=== PATIENT | female | born 1955 | race Caucasian/White ===

== ENCOUNTER 2017-09-07 08:00 | Outpatient (CLI) | payer OTHER ==
[2017-09-07 13:15] LABS: BASOPHILS # (AUTO) 0.1 10^3/uL (0.0-0.1); BASOPHILS % (AUTO) 0.8 %; EOSINOPHILS # (AUTO) 0.1 10^3/uL (0.0-0.7); EOSINOPHILS % (AUTO) 1.2 %; HGB - HEMOGLOBIN 13.6 g/dL (12.0-16.0); LYMPHOCYTES % (AUTO) 20.9 %; MEAN CORPUSCULAR HEMOGLOBIN 29.8 pg (27.0-31.0); MEAN CORPUSCULAR HGB CONC 33.9 g/dL (32.0-36.0); MEAN PLATELET VOLUME 8.3 fL (7.9-10.8); MONOCYTES # (AUTO) 0.5 10^3/uL (0.0-1.0); MONOCYTES % (AUTO) 5.7 %; NEUTROPHILS # (AUTO) 6.8 10^3/uL (1.5-6.6); NEUTROPHILS % (AUTO) 71.4 %; PLT - PLATELET COUNT 369 10^3/uL (130-450); RED BLOOD COUNT 4.55 10^6/uL (4.20-5.40); RED CELL DISTRIBUTION WIDTH 13.1 % (12.0-15.0); WHITE BLOOD COUNT 9.5 x10^3/uL (4.8-10.8)
[2017-09-07 13:22] LABS: ALBUMIN 3.9 g/dL (3.2-5.5); ALBUMIN/GLOBULIN RATIO 1.2 (1.0-2.2); ALKALINE PHOSPHATASE 79 IU/L (42-121); ALT ALANINE AMINOTRANSFERASE 20 IU/L (10-60); AST ASPARTATE AMINOTRANSFERASE 18 IU/L (10-42); BILIRUBIN,TOTAL 0.4 mg/dL (0.2-1.0); BUN - BLOOD UREA NITROGEN 13 mg/dL (6-20); CARBON DIOXIDE - CO2 24 mmol/L (21-32); CHLORIDE 106 mmol/L (101-111); CHOL/HDL RATIO 4.1 (<4.4); CHOLESTEROL 195 mg/dL; CREATININE 0.6 mg/dL (0.4-1.0); GFR - MDRD 101 (>89); GLUCOSE 99 mg/dL (70-100); HDL CHOLESTEROL 47 mg/dL; LDL CHOLESTEROL,CALCULATED 129 mg/dL; LDL/HDL RATIO 2.7 (<4.4); SODIUM 138 mmol/L (135-145); TOTAL PROTEIN 7.1 g/dL (6.7-8.2); VLDL CHOLESTEROL 19 mg/dL
[2017-09-07 20:02] LABS: HB2 TOTAL 14.6 g/dL; HEMOGLOBIN A1C 0.51 g/dL; HEMOGLOBIN A1C % 5.3 % (4.6-6.2)
== END 2017-09-07 08:01 | disposition home or self-care (01) ==
LOC: LAB.WCP 08:00
PROVIDERS: ATTEND Family Medicine
DX: Z00.00 Encounter for general adult medical examination without abnormal findings (principal); E78.5 Hyperlipidemia, unspecified
CPT/HCPCS: 36415; 80053; 80061; 83036; 83721; 84443; 85025

== ENCOUNTER 2017-09-22 09:15 | Outpatient (CLI) | payer OTHER ==
--- NOTE | 2017-09-22 11:10 | Mammography Report ---
Procedure Date: 09/22/2017 Accession Number: [id number] / [id number] Procedure: MAXIMILIAN - Diagnostic Dig Bilat CPT Code: FULL RESULT: EXAM: Bilateral mammography and left breast ultrasound DATE: 09/22/2017 9:48 AM CLINICAL HISTORY: Left breast pain BILATERAL MAMMOGRAPHY TECHNIQUE: Bilateral digital CC, exaggerated CC, MLO, and left true lateral projections COMPARISON: 12/20/2015, 02/02/2014, 11/30/2011, 09/05/2009 FINDINGS: There are scattered fibroglandular densities. There is no dominant mass, architectural distortion, skin thickening, suspicious microcalcifications, or interval change. No abnormality is identified in the left breast to account for pain. LEFT BREAST ULTRASOUND: Real time scanning by the technologist with saved static images reviewed. Scanning is performed in the 9:30 position 8 cm from the nipple in the area of pain. No cystic or solid mass or abnormal fluid collection is seen. Fat planes are well maintained. IMPRESSION: Negative bilateral mammography and left breast ultrasound. RECOMMENDATION: Suggest follow-up bilateral mammography in 12 months. Suggest clinical follow-up of breast pain. BIRADS CATEGORY 1: Negative STANDARD QUALIFYING STATEMENTS: 1. This examination was reviewed with the aid of Computer-Aided Detection (CAD). 2. A negative or benign imaging report should not delay biopsy if clinically suspicious findings are present. Consider surgical consultation if warrented. More than 5% of cancers are not identified by imaging. 3. Dense breasts may obscure an underlying neoplasm.
== END 2017-09-22 09:16 | disposition home or self-care (01) ==
LOC: DI 09:15
PROVIDERS: ATTEND Family Medicine
DX: N64.4 Mastodynia (principal)
CPT/HCPCS: 76642; 77066

== ENCOUNTER 2019-04-03 15:05 | Outpatient (CLI) | payer OTHER ==
[2019-04-03] MEDS ORDERED: IOVERSOL 320 50 ML VIAL ONE (15:09)
[2019-04-03] MEDS ORDERED: IOVERSOL 320 100 ML VIAL IVP ONE ×2 (15:09→16:21)
[2019-04-03 15:33] LABS: ALBUMIN 4.4 g/dL (3.2-5.5); ALBUMIN/GLOBULIN RATIO 1.4 (1.0-2.2); BILIRUBIN,TOTAL 0.5 mg/dL (0.2-1.0); CALCIUM 9.3 mg/dL (8.5-10.3); CREATININE 0.6 mg/dL (0.4-1.0); TOTAL PROTEIN 7.5 g/dL (6.7-8.2)
[2019-04-03] MEDS ORDERED: IOVERSOL 320 50 ML VIAL PO ONE (16:21)
--- NOTE | 2019-04-03 17:00 | CT Report ---
Reason: HX OF DIVERTICULITIS Procedure Date: 04/03/2019 Accession Number: [id number] / [id number] Procedure: CT - Abdomen/Pelvis W CPT Code: Final Report FULL RESULT: EXAM: CT ABDOMEN AND PELVIS EXAM DATE: 04/03/2019 04:20 PM. CLINICAL HISTORY: Abdominal pain. History of diverticulitis. COMPARISONS: CT ABD AND PELVIS WITH CONTRAST 07/10/2012 8:46 PM. TECHNIQUE: Routine helical CT imaging was performed through the abdomen and pelvis. IV contrast: Opti 320 100 mL. Enteric contrast: Yes. Reconstructions: Coronal and sagittal. In accordance with CT protocol optimization, one or more of the following dose reduction techniques were utilized for this exam: automated exposure control, adjustment of mA and/or KV based on patient size, or use of iterative reconstructive technique. FINDINGS: Lung Bases: Unremarkable. Liver: Unremarkable. Gallbladder/Bile Ducts: Unremarkable. Spleen: Normal. Pancreas: Normal. Adrenal Glands: Normal. Kidneys: Bilateral ectatic main renal pelvis without filling defect, stone, masses or perirenal abnormal density again noted, similar to the prior exam. There are again left renal cortical cysts, the largest one is in the left renal upper pole. Exophytic cortical cyst measured 2.7 cm, previously 1 cm. Peritoneal Cavity/Bowel: There is colon diverticulosis. There is mild pericolonic fat stranding and mild colon wall thickening in the mid sigmoid colon located in the left mid pelvis. No free fluid, free air or adenopathy. No small bowel dilatation or acute inflammatory process. The appendix is visualized and normal. Pelvic Organs: The uterus is not seen. The bladder and visualized pelvic organs are within normal limits. Vasculature: No aneurysms or other significant abnormality. Bones: No significant abnormality. There is new moderate to severe degenerative disk disease at L2-L3; otherwise, the multilevel mild to moderate degenerative disk disease, predominantly at L5-S1 again noted, similar to the prior exam. Other: None. IMPRESSION: 1. Colon diverticulosis with mild mid sigmoid colon diverticulitis without evidence of pneumoperitoneum or drainable abscess. 2. New moderate to severe degenerative disk disease at L2-L3; otherwise, no significant interval change of the multilevel mild to moderate degenerative disk disease, predominantly at L5-S1 RADIA
== END 2019-04-03 15:06 | disposition home or self-care (01) ==
LOC: DI 15:05
PROVIDERS: ATTEND Nurse Practitioner Family
DX: K57.32 Diverticulitis of large intestine without perforation or abscess without bleeding (principal); K57.30 Diverticulosis of large intestine without perforation or abscess without bleeding; M51.36 Other intervertebral disc degeneration, lumbar region; M51.37 Other intervertebral disc degeneration, lumbosacral region
CPT/HCPCS: 36415; 74177; 80053; Q9967

== ENCOUNTER 2019-05-26 08:07 | Outpatient (CLI) | payer OTHER ==
--- NOTE | 2019-06-06 09:36 | Mammography Report ---
Reason: ROUTINE MAMMO Procedure Date: 05/26/2019 Accession Number: [id number] / [id number] Procedure: MGN - Screening Mammo w/Nicolas CPT Code: Final Report FULL RESULT: EXAM: Screening Mammo w/Nicolas DATE: 05/26/2019 8:39 AM CLINICAL HISTORY: Screening encounter. TECHNIQUE: (B) - Bilateral CC and MLO views were obtained. COMPARISON: 09/22/2017 through 09/05/2009. PARENCHYMAL PATTERN: (D) - The breast(s) demonstrate(s) heterogeneously dense fibroglandular parenchyma. FINDINGS: In the left upper outer breast in the 2:00 axis approximately 7 cm from the nipple is a hypodense partially obscured nodule with question of associated microcalcifications which requires additional clarification with spot magnification views and ultrasound. There are no suspicious masses, calcifications, or areas of distortion of the right breast. IMPRESSION: Incomplete examination. BI-RADS category 0. RECOMMENDATION: (ADDMU) - Additional views using both Mammography and Ultrasound recommended. Left breast. BI-RADS CATEGORY: (0) - Incomplete Examination - need additional evaluation. STANDARD QUALIFYING STATEMENTS: 1. This examination was not reviewed with the aid of Computer-Aided Detection (CAD). 2. A negative or benign imaging report should not preclude biopsy if clinically suspicious findings are present. 3. Dense breasts may obscure an underlying neoplasm. 4. This examination was reviewed with the aid of 3D breast imaging (tomosynthesis).
== END 2019-05-26 08:08 | disposition home or self-care (01) ==
LOC: DI.N 08:07
DX: Z12.31 Encounter for screening mammogram for malignant neoplasm of breast (principal); R92.8 Other abnormal and inconclusive findings on diagnostic imaging of breast
CPT/HCPCS: 77063; 77067

== ENCOUNTER 2019-06-16 10:26 | Outpatient (CLI) | payer OTHER ==
--- NOTE | 2019-06-16 13:06 | Mammography Report ---
Reason: ABN MAMMO - LT SPEC VIEWS Procedure Date: 06/16/2019 Accession Number: [id number] / [id number] Procedure: MAXIMILIAN - Diag Special Views Dig LT CPT Code: Final Report FULL RESULT: EXAM: Diag Special Views Dig LT, Breast Unilateral Limited DATE: 06/16/2019 11:20 AM CLINICAL HISTORY: Diagnostic examination. The patient is recalled from screening for left breast nodule. TECHNIQUE: (L) - Left CC, spot magnified CC, ML and spot magnified ML images are obtained. Focused left breast ultrasound is performed. COMPARISON: 09/22/2017 through 11/26/2007. PARENCHYMAL PATTERN: (D) - The breast(s) demonstrate(s) heterogeneously dense fibroglandular parenchyma. FINDINGS: The previously seen partially obscured nodule is not convincingly redemonstrated on spot views and additional tomography. There are no suspicious masses, calcifications, or areas of distortion. Focused left breast ultrasound laterally along the 3:00 axis demonstrates the typically benign wider than tall simple cyst 5 cm from the nipple. This is corresponds in size and shape to the mammographic finding and potentially correlates in location when accounting for differences in technique. No suspicious masses or architectural distortion is seen sonographically. IMPRESSION: Benign findings. BI-RADS category 2. RECOMMENDATION: (ANNUAL) - Recommend routine annual screening mammography. BI-RADS CATEGORY: (2) - Benign Findings. STANDARD QUALIFYING STATEMENTS: 1. This examination was not reviewed with the aid of Computer-Aided Detection (CAD). 2. A negative or benign imaging report should not preclude biopsy if clinically suspicious findings are present. 3. Dense breasts may obscure an underlying neoplasm. 4. This examination was reviewed with the aid of 3D breast imaging (tomosynthesis).
== END 2019-06-16 10:27 | disposition home or self-care (01) ==
LOC: DI 10:26
PROVIDERS: ATTEND Nurse Practitioner Family
DX: N60.02 Solitary cyst of left breast (principal)
CPT/HCPCS: 76642

== ENCOUNTER 2019-07-19 08:00 | Outpatient (CLI) | payer OTHER | END 2019-07-19 23:59 | disposition home or self-care (01) | LOC: LAB.R 08:00 | PROVIDERS: ATTEND Physician Assistant Medical | DX: R10.9 Unspecified abdominal pain (principal) | CPT/HCPCS: 87086 ==

== ENCOUNTER 2019-07-19 11:48 | Outpatient (CLI) | payer OTHER ==
[2019-07-19] MEDS ORDERED: IOVERSOL 320 50 ML VIAL ONE (11:59)
[2019-07-19] MEDS ORDERED: IOVERSOL 320 100 ML VIAL IVP ONE ×2 (11:59→14:40)
[2019-07-19 12:13] LABS: BASOPHILS # (AUTO) 0.1 10^3/uL (0.0-0.1); BASOPHILS % (AUTO) 0.4 %; EOSINOPHILS # (AUTO) 0.1 10^3/uL (0.0-0.7); EOSINOPHILS % (AUTO) 0.5 %; HGB - HEMOGLOBIN 13.3 g/dL (12.0-16.0); LYMPHOCYTES % (AUTO) 13.2 %; MEAN CORPUSCULAR HEMOGLOBIN 30.6 pg (27.0-31.0); MEAN CORPUSCULAR HGB CONC 34.1 g/dL (32.0-36.0); MEAN CORPUSCULAR VOLUME 89.7 fL (81.0-99.0); MEAN PLATELET VOLUME 9.3 fL (7.9-10.8); MONOCYTES # (AUTO) 1.1 10^3/uL (0.0-1.0); MONOCYTES % (AUTO) 7.2 %; NEUTROPHILS # (AUTO) 11.8 10^3/uL (1.5-6.6); NEUTROPHILS % (AUTO) 78.2 %; PLT - PLATELET COUNT 338 10^3/uL (130-450); RED BLOOD COUNT 4.35 10^6/uL (4.20-5.40); RED CELL DISTRIBUTION WIDTH 12.9 % (12.0-15.0); WHITE BLOOD COUNT 15.1 x10^3/uL (4.8-10.8)
[2019-07-19 12:26] LABS: ALBUMIN 4.4 g/dL (3.2-5.5); ALBUMIN/GLOBULIN RATIO 1.3 (1.0-2.2); BILIRUBIN,TOTAL 0.8 mg/dL (0.2-1.0); CREATININE 0.7 mg/dL (0.4-1.0); TOTAL PROTEIN 7.7 g/dL (6.7-8.2)
--- NOTE | 2019-07-19 14:05 | CT Report ---
Reason: ABDOMINAL PAIN Procedure Date: 07/19/2019 Accession Number: [id number] / [id number] Procedure: CT - Abdomen/Pelvis W CPT Code: Addended Final Report FULL RESULT: EXAM: CT ABDOMEN AND PELVIS EXAM DATE: 07/19/2019 01:09 PM. CLINICAL HISTORY: Lower ABDOMINAL PAIN, history of diverticulitis. COMPARISONS: ABDOMEN/PELVIS W/ 04/03/2019 4:[address] ABD AND PELVIS WITH CONTRAST 07/10/2012 8:46 PM. TECHNIQUE: Routine helical CT imaging was performed through the abdomen and pelvis. IV contrast: 100 mL OPTIRAY 320. Enteric contrast: Positive. Reconstructions: Coronal and sagittal. In accordance with CT protocol optimization, one or more of the following dose reduction techniques were utilized for this exam: automated exposure control, adjustment of mA and/or KV based on patient size, or use of iterative reconstructive technique. FINDINGS: Lung Bases: Mild linear scarring in the lingula and right middle lobe. Liver: Normal. Gallbladder/Bile Ducts: Unremarkable. Spleen: Normal. Pancreas: Normal. Adrenal Glands: Normal. Kidneys: No hydronephrosis. Mildly prominent extra renal pelves, as before. Small left renal cysts are not significantly changed. No imaging follow-up is recommended per consensus recommendations. Peritoneal Cavity/Bowel: No small bowel dilation or evidence of obstruction. Mild diverticulosis. The sigmoid colon is thickened for about 14 cm in length with mild surrounding stranding and vascular engorgement. There is heterogeneous low attenuation within the wall of the sigmoid colon without discrete rim measuring 2.0 x 2.0 cm (image 66 series 3). Trace free fluid in the pelvis. No peritoneal abscess. No free air. No lymphadenopathy. Normal appendix. Pelvic Organs: The bladder is unremarkable. The uterus is absent. Vasculature: Moderate aortic atherosclerosis without aneurysm. Bones: Moderate to severe disk degeneration at L2-L3 and L5-S1 Other: None. IMPRESSION: Thickened sigmoid colon with mild stranding in the pelvis is likely sequela of diverticulitis, although colitis also possible. Low-attenuation in the wall of the sigmoid colon is most consistent with phlegmon and developing abscess. No evidence of perforation. [facility] The call report notification system was initiated by Dr. Shaun Hale at 01:56 PM on 07/19/2019. ADDENDUM: 07/19/19 14:08 The above call report findings were discussed with Taryn Gallegos by Dr. Shaun Hale at 02:08 PM on 07/19/2019. Consider colonoscopy after appropriate treatment if the patient is not up-to-date on screening.
[2019-07-19] MEDS ORDERED: IOVERSOL 320 50 ML VIAL PO ONE (14:40)
== END 2019-07-19 11:49 | disposition home or self-care (01) ==
LOC: LAB 11:48
PROVIDERS: ATTEND Physician Assistant Medical
DX: R10.9 Unspecified abdominal pain (principal)
CPT/HCPCS: 36415; 74177; 80053; 83690; 85025; 87086; Q9967

== ENCOUNTER 2019-07-26 09:56 | Outpatient (CLI) | payer OTHER ==
[2019-07-26 12:40] LABS: BASOPHILS # (AUTO) 0.1 10^3/uL (0.0-0.1); BASOPHILS % (AUTO) 0.7 %; EOSINOPHILS # (AUTO) 0.1 10^3/uL (0.0-0.7); EOSINOPHILS % (AUTO) 1.3 %; HGB - HEMOGLOBIN 13.5 g/dL (12.0-16.0); LYMPHOCYTES % (AUTO) 28.9 %; MEAN CORPUSCULAR HEMOGLOBIN 28.9 pg (27.0-31.0); MEAN CORPUSCULAR HGB CONC 32.1 g/dL (32.0-36.0); MEAN CORPUSCULAR VOLUME 90.1 fL (81.0-99.0); MEAN PLATELET VOLUME 9.5 fL (7.9-10.8); MONOCYTES # (AUTO) 0.7 10^3/uL (0.0-1.0); MONOCYTES % (AUTO) 6.6 %; NEUTROPHILS # (AUTO) 6.5 10^3/uL (1.5-6.6); NEUTROPHILS % (AUTO) 62.2 %; PLT - PLATELET COUNT 469 10^3/uL (130-450); RED BLOOD COUNT 4.67 10^6/uL (4.20-5.40); RED CELL DISTRIBUTION WIDTH 12.9 % (12.0-15.0); WHITE BLOOD COUNT 10.5 x10^3/uL (4.8-10.8)
== END 2019-07-26 23:59 | disposition home or self-care (01) ==
LOC: LAB.WCP 09:56
PROVIDERS: ATTEND Physician Assistant Medical
DX: K57.92 Diverticulitis of intestine, part unspecified, without perforation or abscess without bleeding (principal)
CPT/HCPCS: 36415; 85025

== ENCOUNTER 2019-08-18 01:38 | Emergency (ER) | payer OTHER ==
[2019-08-18 01:59] LABS: BILIRUBIN,URINE NEGATIVE (NEGATIVE); GLUCOSE, URINE (UA) NEGATIVE (NEGATIVE); KETONES,URINE (UA) NEGATIVE (NEGATIVE); LEUKOCYTE ESTERASE, URINE TRACE (NEGATIVE); NITRITE,URINE NEGATIVE (NEGATIVE); OCCULT BLOOD,URINE NEGATIVE (NEGATIVE); PROTEIN,URINE NEGATIVE (NEGATIVE); UROBILINOGEN,URINE 0.2 (NORMAL) E.U./dL (NORMAL)
[2019-08-18 02:10] LABS: CLARITY,URINE CLEAR (CLEAR)
[2019-08-18 02:11] LABS: BACTERIA,URINE Rare /HPF (None Seen); RBC,URINE 0-5 /HPF (0-5); SQUAMOUS EPITHELIAL CELL,UR FEW Squamous (<= Few)
[2019-08-18 02:12] LABS: BASOPHILS # (AUTO) 0.1 10^3/uL (0.0-0.1); BASOPHILS % (AUTO) 0.5 %; EOSINOPHILS # (AUTO) 0.2 10^3/uL (0.0-0.7); EOSINOPHILS % (AUTO) 1.5 %; HGB - HEMOGLOBIN 13.6 g/dL (12.0-16.0); LYMPHOCYTES # (AUTO) 2.8 10^3/uL (1.5-3.5); LYMPHOCYTES % (AUTO) 23.9 %; MEAN CORPUSCULAR HEMOGLOBIN 29.2 pg (27.0-31.0); MEAN CORPUSCULAR HGB CONC 32.9 g/dL (32.0-36.0); MEAN CORPUSCULAR VOLUME 88.8 fL (81.0-99.0); MEAN PLATELET VOLUME 9.2 fL (7.9-10.8); MONOCYTES # (AUTO) 0.9 10^3/uL (0.0-1.0); MONOCYTES % (AUTO) 7.5 %; NEUTROPHILS # (AUTO) 7.8 10^3/uL (1.5-6.6); NEUTROPHILS % (AUTO) 66.3 %; PLT - PLATELET COUNT 359 10^3/uL (130-450); RED BLOOD COUNT 4.65 10^6/uL (4.20-5.40); WHITE BLOOD COUNT 11.7 x10^3/uL (4.8-10.8)
[2019-08-18 02:24] LABS: ALBUMIN 4.2 g/dL (3.2-5.5); ALBUMIN/GLOBULIN RATIO 1.3 (1.0-2.2); BILIRUBIN,TOTAL 0.5 mg/dL (0.2-1.0); CALCIUM 9.1 mg/dL (8.5-10.3); CREATININE 0.7 mg/dL (0.4-1.0); TOTAL PROTEIN 7.4 g/dL (6.7-8.2)
--- NOTE | 2019-08-18 02:26 | ED Physician Documentation ---
PD HPI ABD PAIN - Stated complaint Stated Complaint: R FLANK PX - Chief complaint Chief Complaint: Abd Pain - History obtained from History obtained from: Patient - History of Present Illness Timing - onset: How many days ago (2-3) Timing - details: Intermittant Pain level max: 6 Pain level now: 4 Quality: Pain Location: Other (right flank) Improved by: Other (no ameliorating factors) Worsened by: Other (no exacerbating factors) Associated symptoms: Nausea. No: Fever, Vomiting, Diarrhea, Constipation, Dysuria, Hematuria Similar symptoms before: Has not had sx before Recently seen: Not recently seen - Additional information Additional information: c/o 3 days of right flank pain radiating to right mid-level back without exacerbating or ameliorating factors. denies h/o similar symptoms Review of Systems Constitutional: reports: Reviewed and negative Cardiac: reports: Reviewed and negative Respiratory: reports: Reviewed and negative GI: reports: Abdominal Pain, Nausea. 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 - Present Medications Home Medications: Ambulatory Orders Medication Instructions Recorded Confirmed Ciprofloxacin HCl [Cipro] 500 mg PO BID #10 tablet 07/24/15 Hydrocodone/Acetaminophen 1 - 2 each PO Q6H PRN #10 tablet 08/18/19 [Hydrocodon-Acetaminophen 5-325] Ondansetron Odt [Zofran Odt] 4 mg TL Q6H PRN #10 tablet 08/18/19 - Allergies Allergies/Adverse Reactions: Allergies Allergy/AdvReac Type Severity Reaction Status Date / Time ibuprofen Allergy nosebleed Verified 07/24/15 19:45 - Social History Does the pt smoke?: Yes Smoking Status: Current every day smoker Does the pt drink ETOH?: No Does the pt have substance abuse?: No PD ED PE NORMAL - Vitals Vital signs reviewed: Yes - General General: Alert and oriented X 3, No acute distress, Well developed/nourished - Cardiac Cardiac: RRR, No murmur, No gallop, No rub - Respiratory Respiratory: No respiratory distress, Clear bilaterally - Abdomen Abdomen: Soft, Non tender, Non distended - Back Back: No CVA TTP - Derm Derm: Normal color, Warm and dry, No rash - Extremities Extremities: No edema Results - Vitals Vitals: Oxygen O2 Source Room air - Labs Labs: Laboratory Tests 08/18/19 08/18/19 08/18/19 01:40 02:00 02:00 WBC 11.7 H RBC 4.65 Hgb 13.6 Hct 41.3 MCV 88.8 MCH 29.2 MCHC 32.9 RDW 13.0 Plt Count 359 MPV 9.2 Neut # (Auto) 7.8 H Lymph # (Auto) 2.8 [place] # (Auto) 0.9 Eos # (Auto) 0.2 Baso # (Auto) 0.1 Absolute Nucleated RBC 0.00 Nucleated RBC % 0.0 Sodium 138 Potassium 3.7 Chloride 105 Carbon Dioxide 23 Anion Gap 10.0 BUN 11 Creatinine 0.7 Estimated GFR (MDRD) 84 L Glucose 112 H Calcium 9.1 Total Bilirubin 0.5 AST 20 ALT 22 Alkaline Phosphatase 80 Total Protein 7.4 Albumin 4.2 Globulin 3.2 Albumin/Globulin Ratio 1.3 Lipase 48 Urine Color YELLOW Urine Clarity CLEAR Urine pH 6.0 Ur Specific [place] 1.025 Urine Protein NEGATIVE Urine Glucose (UA) NEGATIVE Urine Ketones NEGATIVE Urine Occult Blood NEGATIVE Urine Nitrite NEGATIVE Urine Bilirubin NEGATIVE Urine Urobilinogen 0.2 (NORMAL) Ur Leukocyte Esterase TRACE H Urine RBC 0-5 Urine WBC 0-3 Ur Squamous Epith Cells FEW Squamous Urine Bacteria Rare Ur Microscopic Review INDICATED Urine Culture Comments INDICATED - Rads (name of study) CT A/P Radiology: Prelim report reviewed, See rad report PD MEDICAL DECISION MAKING - ED course Complexity details: reviewed results, re-evaluated patient, considered differential, d/w patient Departure - Departure Disposition: 01 Home, Self Care Clinical Impression: Flank pain Condition: Good Instructions: ED Flank Pain Uncertain Cause Follow-Up: ROWAN BUSTILLO, MSN, [employer] [Primary Care Provider] - Prescriptions: Hydrocodone/Acetaminophen [Hydrocodon-Acetaminophen 5-325] 1 - 2 each PO Q6H PRN #10 tablet PRN Reason: pain Ondansetron Odt [Zofran Odt] 4 mg TL Q6H PRN #10 tablet PRN Reason: Nausea / Vomiting Discharge Date/Time: 08/18/19 03:57
[2019-08-18] MEDS ORDERED: KETOROLAC 30 MG/ML VIAL IVP STA (02:35)
[2019-08-18] MEDS ORDERED: ONDANSETRON 4 MG/2 ML VIAL ONE (02:46)
[2019-08-18] MEDS ORDERED: ONDANSETRON 4 MG/2 ML VIAL IVP STA ×2 (02:47→02:48)
--- NOTE | 2019-08-18 03:20 | CT Report ---
Reason: right flank pain Procedure Date: 08/18/2019 Accession Number: [id number] / [id number] Procedure: CT - Abdomen/Pelvis WO CPT Code: Final Report FULL RESULT: EXAM: CT ABDOMEN AND PELVIS (CT KUB) EXAM DATE: 08/18/2019 03:00 AM. CLINICAL HISTORY: Right flank pain. COMPARISONS: CT ABDOMEN/PELVIS W/ 07/19/2019 1:02 PM. TECHNIQUE: Routine axial helical CT imaging was performed through the abdomen and pelvis without IV contrast. Reconstructions: Coronal and sagittal. In accordance with CT protocol optimization, one or more of the following dose reduction techniques were utilized for this exam: automated exposure control, adjustment of mA and/or KV based on patient size, or use of iterative reconstructive technique. FINDINGS: Lung Bases: Unremarkable. Right Kidney/Ureter: No stones, hydronephrosis, or hydroureter. No perinephric fat stranding. Left Kidney/Ureter: Left upper pole renal cyst measuring 2.4 cm. Small left lower pole renal cyst. No stones, hydronephrosis, or hydroureter. No perinephric fat stranding. Other Solid Organs: Noncontrast images of the solid organs are grossly unremarkable. Gallbladder/Bile Ducts: Unremarkable. Peritoneal Cavity: No bowel obstruction or significant bowel thickening. Sigmoid diverticula without definite evidence of acute diverticulitis. Mild residual sigmoid wall thickening or underdistention although significantly improved since prior CT. No free fluid, free adenopathy. Normal appendix visualized. Pelvic Organs: Bladder is decompressed although otherwise unremarkable. No bladder stones or wall thickening. Uterus surgically absent. Ovaries not well seen. Vasculature: Atherosclerotic vascular disease. No abdominal aortic aneurysm. Other: Heterogeneous osseous structures with degenerative disk disease, most prominent at L2-L3 and L5-S1. IMPRESSION: 1. No urinary tract stones or obstruction. 2. Mild residual sigmoid wall thickening versus underdistention, significantly improved since prior CT. No findings to suggest acute or recurrent diverticulitis. 3. Normal appendix. RADIA
[2019-08-18] MEDS ORDERED: HYDROcod/ACET 5/325 Prepack 4 PO STA (03:44)
[2019-08-18 03:57] VITALS: BP 158/88
== END 2019-08-18 03:57 | disposition home or self-care (01) ==
LOC: ED 01:38
DX: R10.9 Unspecified abdominal pain (principal); F17.200 Nicotine dependence, unspecified, uncomplicated
CPT/HCPCS: 36415; 74176; 80053; 81001; 81003; 83690; 85025; 87086; 96374; 99284

== ENCOUNTER 2019-08-30 23:43 | Emergency (ER) | payer OTHER ==
--- NOTE | 2019-08-31 00:25 | ED Physician Documentation ---
History of Present Illness - Stated complaint Stated Complaint: SIDE PX - Chief complaint Chief Complaint: Wound - History obtained from History obtained from: Patient - History of Present Illness Timing: How many days ago (12) Pain level now: 8 Improved by: nothing Worsened by: no exacerbating factors, but worse at night - Additonal information Additional information: patient has had right flank/right lower back pain radiating to RLQ x 12 days and was evaluated in this ED (by me) 08/17 for this pain. At that time, CT scan did not reveal etiology of pain (it demonstrated near-resolution of sigmoid inflammation which had been due to recent diverticulitis, but this was not correlating with area of pain). Prior to discharge, I did review the possibility of shingles with the patient: although there was no exanthem at the time, the pain was in a dermatomal distribution that did not cross midline. Patient says that the following day (08/18), she did indeed develop a rash in the area of pain. She was evaluated by PMD yesterday via video appointment and was diagnosed with shingles; she started valacyclovir yesterday. She comes to ED at this time due to pain that is uncontrolled with the hydrocodone I had prescribed 08/17. She says the pain is most intense at night over the past two nights, preventing her from being able to sleep. She also has nausea, intermittent since last night Review of Systems Constitutional: denies: Fever, Chills, Sweats GI: reports: Abdominal Pain, Nausea. 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 - Present Medications Home Medications: Ambulatory Orders Medication Instructions Recorded Confirmed HYDROmorphone [Dilaudid] 2 mg PO Q4H PRN #14 tablet 08/31/19 Lidocaine Patch 5% [Lidoderm Patch] 1 patch TOP DAILY PRN #10 patch 08/31/19 Ondansetron Odt [Zofran] 4 mg TL Q6H PRN #14 tablet 08/31/19 Valacyclovir HCl [Valacyclovir] 1 gm PO TID 08/31/19 08/31/19 traMADol [Ultram] 100 mg PO Q6H PRN #14 tablet 08/31/19 - Allergies Allergies/Adverse Reactions: Allergies Allergy/AdvReac Type Severity Reaction Status Date / Time ibuprofen Allergy nosebleed Verified 08/30/19 23:51 - Social History Does the pt smoke?: Yes Smoking Status: Current every day smoker Does the pt drink ETOH?: No Does the pt have substance abuse?: No PD ED PE NORMAL - Vitals Vital signs reviewed: Yes - General General: Alert and oriented X 3, Well developed/nourished, Other (appears uncomfortable, painful distress) - Abdomen Abdomen: Soft, Non tender PD ED PE EXPANDED - Derm Derm: Rash (clusters of vesiculopapular lesions in dermatomal distribution from midline of lower right paralumbar region, around right flank, to RLQ and not crossing midline) Results - Vitals Vitals: Vital Signs - 24 hr 08/30/19 08/31/19 08/31/19 23:46 01:26 02:05 Temperature 37.2 C 36.5 C Heart Rate 76 76 72 Respiratory 16 14 16 Rate Blood Pressure 151/72 H 161/63 H 158/63 H O2 Saturation 99 98 98 Oxygen O2 Source Room air PD MEDICAL DECISION MAKING - ED course Complexity details: considered differential, d/w patient ED course: exanthem is classic in appearance for herpes zoster and no evidence of bacterial infection. She reported excellent relief with TL zofran, 1mg IM dilaudid, and l idoderm patch. D/C with rx for po hydromorphone, tramadol, and lidoderm. Departure - Departure Disposition: 01 Home, Self Care Clinical Impression: Herpes zoster Qualifiers: Herpes zoster complications: without complications Qualified Code(s): B02.9 - Zoster without complications Condition: Good Instructions: ED Shingles Follow-Up: ROWAN BUSTILLO, MSN, CHIEF PORT DIRECTOR [Primary Care Provider] - Prescriptions: HYDROmorphone [Dilaudid] 2 mg PO Q4H PRN #14 tablet PRN Reason: Severe Pain Lidocaine Patch 5% [Lidoderm Patch] 1 patch TOP DAILY PRN #10 patch PRN Reason: pain Ondansetron Odt [Zofran] 4 mg TL Q6H PRN #14 tablet PRN Reason: Nausea / Vomiting traMADol [Ultram] 100 mg PO Q6H PRN #14 tablet PRN Reason: Pain Comments: You can try the tramadol (Ultram) for mild/moderate pain, and the hydromorphone for severe pain. Do not take either of these with the hydrocodone, and try to space these medications out 4-6 hours apart from each other. You can take tylenol or ibuprofen with the ultram or the hydromorphone. Discharge Date/Time: 08/31/19 02:13
[2019-08-31] MEDS ORDERED: LIDOCAINE PATCH 5% TOP STA (00:51)
[2019-08-31] MEDS ORDERED: HYDROmorphone 1 MG/ML CARPUJECT IM STA (00:51)
[2019-08-31] MEDS ORDERED: ONDANSETRON ODT 4 MG TABLET TL STA (00:51)
[2019-08-31 02:13] VITALS: BP 158/63
== END 2019-08-31 02:13 | disposition home or self-care (01) ==
LOC: ED 23:43
DX: B02.9 Zoster without complications (principal); F17.200 Nicotine dependence, unspecified, uncomplicated
CPT/HCPCS: 96372; 99283; 99284; A9270; J1170; Q0162

== ENCOUNTER 2020-09-23 07:46 | Outpatient (CLI) | payer OTHER, MEDICARE ==
[2020-09-23 11:38] LABS: BASOPHILS # (AUTO) 0.1 10^3/uL (0.0-0.1); BASOPHILS % (AUTO) 0.4 %; EOSINOPHILS # (AUTO) 0.1 10^3/uL (0.0-0.7); EOSINOPHILS % (AUTO) 0.6 %; HCT - HEMATOCRIT 41.1 % (37.0-47.0); HGB - HEMOGLOBIN 13.8 g/dL (12.0-16.0); LYMPHOCYTES # (AUTO) 1.6 10^3/uL (1.5-3.5); LYMPHOCYTES % (AUTO) 12.1 %; MEAN CORPUSCULAR HEMOGLOBIN 30.2 pg (27.0-31.0); MEAN CORPUSCULAR HGB CONC 33.6 g/dL (32.0-36.0); MEAN CORPUSCULAR VOLUME 89.9 fL (81.0-99.0); MEAN PLATELET VOLUME 9.7 fL (7.9-10.8); MONOCYTES # (AUTO) 0.9 10^3/uL (0.0-1.0); MONOCYTES % (AUTO) 6.4 %; NEUTROPHILS # (AUTO) 10.9 10^3/uL (1.5-6.6); NEUTROPHILS % (AUTO) 80.1 %; PLT - PLATELET COUNT 402 10^3/uL (130-450); RED BLOOD COUNT 4.57 10^6/uL (4.20-5.40); RED CELL DISTRIBUTION WIDTH 12.9 % (12.0-15.0); WHITE BLOOD COUNT 13.6 x10^3/uL (4.8-10.8)
[2020-09-23 11:53] LABS: ALBUMIN 4.4 g/dL (3.2-5.5); ALBUMIN/GLOBULIN RATIO 1.4 (1.0-2.2); BILIRUBIN,TOTAL 0.7 mg/dL (0.2-1.0); CALCIUM 9.4 mg/dL (8.5-10.3); CREATININE 0.7 mg/dL (0.4-1.0); POTASSIUM 4.2 mmol/L (3.5-5.0); TOTAL PROTEIN 7.6 g/dL (6.7-8.2)
== END 2020-09-23 23:59 | disposition home or self-care (01) ==
LOC: LAB.N 07:46
PROVIDERS: ATTEND Family Medicine
DX: R10.9 Unspecified abdominal pain (principal)
CPT/HCPCS: 36415; 80053; 85025

== ENCOUNTER 2020-11-01 09:24 | Day surgery (SDC) | payer OTHER, MEDICARE ==
[2020-11-01] MEDS ORDERED: LACTATED RINGERS 1,000 ML IV ONE ×2 (09:30→11:21)
[2020-11-01] MEDS ORDERED: fentaNYL 250 MCG/5 ML VIAL ONE (10:20)
[2020-11-01] MEDS ORDERED: MIDAZOLAM 2 MG/2 ML VIAL ONE ×3 (10:20→11:00)
--- NOTE | 2020-11-01 10:37 | HISTORY & PHYSICAL EXAMINATION ---
Chief Complaint - Chief Complaint Chief Complaint: Here for colon cancer screening History of Present Illness - History Obtained From Records Reviewed: yes History obtained from: pt Exam Limitations: none - History of Present Illness HPI Comment/Other: History of hyperplastic polyps and diverticulosis. Last colonoscopy about 10 years ago. 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 Patient has POLST: No Meds/Allgy - Home Medications Home Medications: Ambulatory Orders Medication Instructions Recorded Confirmed No Known Home Medications 10/31/20 11/01/20 - Allergies Allergies/Adverse Reactions: Allergies Allergy/AdvReac Type Severity Reaction Status Date / Time ibuprofen Allergy nosebleed Verified 11/01/20 09:47 Review of Systems - Other Findings Other Findings: 10 pt ros as above otherwise unremarkable Exam - Vital Signs Reviewed Vital Signs: Yes Vital Signs: Vital Signs x48h Temp Pulse Resp BP Pulse Ox 11/01/20 09:40 36.4 C L 76 16 138/72 H 96 - Physical Exam General Appearance: positive: Alert, Mild distress Eyes Bilateral: positive: PERRL, EOMI ENT: positive: No signs of dehydration Neck: positive: No JVD Respiratory: positive: Breath sounds nml Cardiovascular: positive: Regular rate & rhythm Abdomen: positive: Non-tender, No distention Neurologic/Psychiatric: positive: Oriented x3 Conclusion/Plan - Problem List (1) Colon cancer screening Conclusion/Plan: plan colonoscopy. parq held and consent obtained
[2020-11-01 11:32] VITALS: BP 119/81
== END 2020-11-01 09:25 | disposition home or self-care (01) ==
LOC: SDS 09:24
PROVIDERS: ATTEND Surgery
PROC: 0DBN8ZX Excision of Sigmoid Colon, Via Natural or Artificial Opening Endoscopic, Diagnostic (ICD-10-PCS; 2020-11-01)
PROC: 0DBM8ZZ Excision of Descending Colon, Via Natural or Artificial Opening Endoscopic (ICD-10-PCS; principal; 2020-11-01 10:30)
DX: Z12.11 Encounter for screening for malignant neoplasm of colon (principal); K63.5 Polyp of colon; K57.30 Diverticulosis of large intestine without perforation or abscess without bleeding
CPT/HCPCS: 45380; J3010; J7120

== ENCOUNTER 2021-04-25 07:00 | Outpatient (CLI) | payer OTHER, MEDICARE ==
[2021-04-25 12:30] LABS: BASOPHILS # (AUTO) 0.1 10^3/uL (0.0-0.1); BASOPHILS % (AUTO) 0.5 %; EOSINOPHILS # (AUTO) 0.2 10^3/uL (0.0-0.7); EOSINOPHILS % (AUTO) 1.3 %; HCT - HEMATOCRIT 41.6 % (37.0-47.0); LYMPHOCYTES # (AUTO) 2.2 10^3/uL (1.5-3.5); LYMPHOCYTES % (AUTO) 18.7 %; MEAN CORPUSCULAR HGB CONC 33.7 g/dL (32.0-36.0); MEAN CORPUSCULAR VOLUME 89.3 fL (81.0-99.0); MEAN PLATELET VOLUME 9.7 fL (7.9-10.8); MONOCYTES # (AUTO) 0.8 10^3/uL (0.0-1.0); MONOCYTES % (AUTO) 6.6 %; NEUTROPHILS # (AUTO) 8.3 10^3/uL (1.5-6.6); NEUTROPHILS % (AUTO) 72.5 %; PLT - PLATELET COUNT 449 10^3/uL (130-450); RED BLOOD COUNT 4.66 10^6/uL (4.20-5.40); RED CELL DISTRIBUTION WIDTH 12.9 % (12.0-15.0); WHITE BLOOD COUNT 11.5 x10^3/uL (4.8-10.8)
[2021-04-25 12:58] LABS: THYROID STIMULATING HORMONE 1.46 uIU/mL (0.34-5.60)
[2021-04-25 12:59] LABS: ALBUMIN 4.2 g/dL (3.2-5.5); ALBUMIN/GLOBULIN RATIO 1.4 (1.0-2.2); ALKALINE PHOSPHATASE 81 IU/L (42-121); ALT ALANINE AMINOTRANSFERASE 23 IU/L (10-60); AST ASPARTATE AMINOTRANSFERASE 17 IU/L (10-42); BILIRUBIN,TOTAL 0.4 mg/dL (0.2-1.0); BUN - BLOOD UREA NITROGEN 20 mg/dL (6-20); CALCIUM 9.3 mg/dL (8.5-10.3); CARBON DIOXIDE - CO2 26 mmol/L (21-32); CHLORIDE 103 mmol/L (101-111); CHOL/HDL RATIO 3.8 (<4.4); CHOLESTEROL 207 mg/dL; CREATININE 0.7 mg/dL (0.4-1.0); GFR - MDRD 84 (>89); GLUCOSE 103 mg/dL (70-100); HDL CHOLESTEROL 54 mg/dL; LDL CHOLESTEROL,CALCULATED 143 mg/dL; LDL/HDL RATIO 2.6 (<4.4); POTASSIUM 4.4 mmol/L (3.5-5.0); SODIUM 138 mmol/L (135-145); TOTAL PROTEIN 7.3 g/dL (6.7-8.2); TRIGLYCERIDES 51 mg/dL; VLDL CHOLESTEROL 10 mg/dL
== END 2021-04-25 23:59 | disposition home or self-care (01) ==
LOC: LAB.WCP 07:00
PROVIDERS: ATTEND Physician Assistant
DX: Z00.00 Encounter for general adult medical examination without abnormal findings (principal)
CPT/HCPCS: 36415; 80053; 80061; 83721; 84443; 85025

== ENCOUNTER 2021-05-24 08:44 | Outpatient (CLI) | payer OTHER, MEDICARE ==
--- NOTE | 2021-05-24 10:19 | CT Report ---
PROCEDURE: Low Dose Lung Cancer Screen INDICATIONS: TOBACCO ABUSE TECHNIQUE: Noncontrast low-dose images were acquired from the pulmonary apices to the posterior costophrenic ang les. Multiplanar MIP reformats were then acquired. For radiation dose reduction, the following was used: automated exposure control, adjustment of mA and/or kV according to patient size. COMPARISON: Correlation is made with overlapping portions of the abdomen and pelvis CT, 08/18/2019 FINDINGS: Image quality: Within normal limits for a low-dose technique. Lungs and pleura: Within the right upper lobe, there is a mild area of groundglass opacity seen, as on series 4 image 37 that measures 2 cm. Within the left upper lobe, there is an additional focus of ground glass opacity seen, as on series 4 image 63 that measures 8 mm. are seen, which measure as follows: Right middle lobe anteriorly, series 4 image 163, 7 mm Right middle lobe anteriorly, series 4 image 184, 3 mm Mediastinum: Heart size is normal. No pericardial effusion. No mediastinal adenopathy by size crit eria. Thoracic aorta and central pulmonary arteries are normal in size. Esophagus is normal in jerry neil. No hiatal hernia. Bones and chest wall: No suspicious bony lesions. Age-appropriate degenerative changes are seen. N o vertebral body compression fractures. No axillary or supraclavicular adenopathy by size criteria. The thyroid is normal in size and there are no incidental findings. Abdomen: Visualized upper abdomen solid organs and bowel loops appear normal in the absence of contr ast for low-dose technique. IMPRESSION: Pulmonary nodules are seen, the largest measuring up to 7 mm. By published criteria, a follow-up nonc ontrast chest CT is recommended in 6-12 months Groundglass opacities are also seen, which can also be followed in 6-12 months. Lung RADS category: 3 Reviewed by: Dariel Real MD on 05/24/2021 9:18 AM [facility] Approved by: Dariel Real MD on 05/24/2021 9:18 AM [facility] Station ID: [id number]
== END 2021-05-24 08:45 | disposition home or self-care (01) ==
LOC: DI 08:44
PROVIDERS: ATTEND Physician Assistant
DX: Z12.2 Encounter for screening for malignant neoplasm of respiratory organs (principal); R91.8 Other nonspecific abnormal finding of lung field; F17.200 Nicotine dependence, unspecified, uncomplicated

== ENCOUNTER 2021-06-17 14:29 | Outpatient (CLI) | payer OTHER, MEDICARE ==
--- NOTE | 2021-06-18 08:15 | Mammography Report ---
BILATERAL DIGITAL SCREENING MAMMOGRAM 3D/2D: 06/17/2021 CLINICAL: Routine screening. Comparison is made to exams dated: 06/16/2019 ultrasound, 06/16/2019 mammogram, 05/26/2019 mammogram, ultrasound, 09/22/2017 mammogram, and 12/20/2015 mammogram - [facility]. Th ere are scattered fibroglandular elements in both breasts. No significant masses, calcifications, or other findings are seen in either breast. There has been no significant interval change. IMPRESSION: NEGATIVE There is no mammographic evidence of malignancy. A 1 year screening mammogram is recommended. This exam was interpreted at Station ID: [id number]. NOTE: For mammograms, a report in lay terms will be sent to the patient. Approximately 15% of breast malignancies will not be visualized mammographically. In the management of a palpable breast mass, a negative mammogram must not discourage biopsy of a clinically suspicious lesion. Electronically Signed By: Sundar Fraser M.D. ddgladis/dragan:06/17/2021 16:33:12 ACR BI-RADS Category 1: Negative 3341F PARENCHYMAL PATTERN: (A) - The breast(s) demonstrate(s) scattered fibroglandular densities. BI-RADS CATEGORY: (1) - 1 RECOMMENDATION: (ANNUAL) - Recommend routine annual screening mammography. [id number] 1 year screening LATERALITY: (B)
== END 2021-06-17 14:30 | disposition home or self-care (01) ==
LOC: DI.N 14:29
PROVIDERS: ATTEND Physician Assistant
DX: Z12.31 Encounter for screening mammogram for malignant neoplasm of breast (principal)

== ENCOUNTER 2021-12-06 08:36 | Outpatient (CLI) | payer OTHER, MEDICARE ==
--- NOTE | 2021-12-06 09:22 | CT Report ---
PROCEDURE: CHEST WO INDICATIONS: MULTIPLE NODULES OF LUNG TECHNIQUE: Noncontrast 1mm axial images were acquired from the pulmonary apices to the posterior costophrenic an gles. Axial 5 mm soft tissue kernel reconstructions were performed as well as 8 mm axial MIP and cor onal and sagittal 5 mm reformations. For radiation dose reduction, the following was used: automate d exposure control, adjustment of mA and/or kV according to patient size. COMPARISON: CT chest 05/24/2021 FINDINGS: Image quality: Excellent. Lungs and pleura: No acute air space opacities. No pleural effusions or pneumothorax. Central and peripheral airways are patent and normal in caliber. Right middle lobe nodule seen on series 4 image 201 as well as image 170 are unchanged. The previously identified groundglass with spiculated areas of linear opacity within the right upper lobe remains unchanged. In addition, there are persistent ar eas of ill-defined groundglass nodularity predominantly within the upper lobes identified bilaterally . Mediastinum: Heart size is normal. No pericardial effusion. No mediastinal adenopathy by size crit eria. Thoracic aorta and central pulmonary arteries are normal in size. Esophagus is normal in jerry neil. No hiatal hernia. Bones and chest wall: No suspicious bony lesions. No vertebral body compression fractures. No axil umesh or supraclavicular adenopathy by size criteria. The thyroid is normal in size and there are no incidental findings. Abdomen: Visualized upper abdominal solid organs and bowel loops appear normal in the absence of con trast. IMPRESSION: Groundglass appearing nodule in the right upper lobe with areas of linear opacity remains unchanged s hemant May 2021. In addition, there is persistent appearance of bilateral groundglass nodules. Valeria earance of the larger right upper lobe nodule with linear areas of opacity appearing somewhat spicula dal[place] remains concerning. While 3 month interval follow-up may be obtained, alternatively PET scan is s uggested for consideration as malignancy with morphology of groundglass nodules can be slow growing i n nature. CLINICAL RECOMMENDATION STATEMENTS: In patients <35 years with an ITN detected on CT, MRI, or extrathyroidal ultrasound, the Committee re commends further evaluation with dedicated thyroid ultrasound if the nodule is "e1 cm and has no susp icious imaging features, and if the patient has normal life expectancy. In patients "e35 years with an ITN detected on CT, MRI, or extrathyroidal ultrasound, the Committee r ecommends further evaluation with dedicated thyroid ultrasound if the nodule is "e1.5 cm and has no s uspicious imaging features, and if the patient has normal life expectancy. (ACR, 2014) Reviewed by: Eileen Willis MD on 12/06/2021 9:21 AM PDT Approved by: Eileen Willis MD on 12/06/2021 9:21 AM PDT Station ID: [id number]
== END 2021-12-06 08:37 | disposition home or self-care (01) ==
LOC: DI 08:36
PROVIDERS: ATTEND Physician Assistant
DX: R91.8 Other nonspecific abnormal finding of lung field (principal)

== ENCOUNTER 2022-03-21 09:46 | Outpatient (CLI) | payer OTHER, MEDICARE ==
--- NOTE | 2022-03-21 10:38 | CT Report ---
PROCEDURE: CHEST WO INDICATIONS: LUNG NODULES TECHNIQUE: Noncontrast 1mm axial images were acquired from the pulmonary apices to the posterior costophrenic an gles. Axial 5 mm soft tissue kernel reconstructions were performed as well as 8 mm axial MIP and cor onal and sagittal 5 mm reformations. For radiation dose reduction, the following was used: automate d exposure control, adjustment of mA and/or kV according to patient size. COMPARISON: 12/06/2021 FINDINGS: Image quality: Good Lungs and pleura: Part solid nodule in the right upper lobe is similar dating back to 05/24/2021 measu ring up to 2.3 x 1.8 cm. Other smaller groundglass nodules and solid nodules are present, with solid nodules measuring under 6 mm. Additional scattered areas of suspected scarring/atelectasis. A nodule adjacent to the right minor fissure again seen measuring up to 6 to 7 mm. No pleural effusions. Mediastinum, heart, and esophagus: Overall unremarkable noncontrast evaluation. Heart size is normal. No hiatal hernia. Chest wall and thyroid: Unremarkable Upper abdomen: Partially seen, no gross abnormality. Left upper pole renal cyst. Bones: No acute or suspicious osseous abnormality. IMPRESSION: Multiple pulmonary nodules as above, the most suspicious as a part solid nodule in the right upper lo be which is stable from prior imaging. Differential includes an indolent adenocarcinoma spectrum lesi on and continued imaging follow-up is advised in 6 months or sooner. Reviewed by: Mike Owens MD on 03/21/2022 9:37 AM [facility] Approved by: Mike Owens MD on 03/21/2022 9:37 AM [facility] Station ID: [id number]
== END 2022-03-21 09:47 | disposition home or self-care (01) ==
LOC: DI 09:46
PROVIDERS: ATTEND Physician Assistant
DX: R91.8 Other nonspecific abnormal finding of lung field (principal)

== ENCOUNTER 2022-07-04 11:57 | Emergency (ER) | payer MEDICARE, OTHER ==
--- NOTE | 2022-07-04 12:09 | ED Physician Documentation ---
PD HPI ABD PAIN - Stated complaint Stated Complaint: L SIDE PX - Chief complaint Chief Complaint: Abd Pain - History obtained from History obtained from: Patient - History of Present Illness Timing - onset: Yesterday Timing - duration: Days (1) Timing - details: Abrupt onset, Still present Quality: Cramping, Aching, Pain Location: LUQ Radiation: Left flank Improved by: No: Laying still Worsened by: Moving (some streathing movement ot the side, but generally not hurting with movement.) Associated symptoms: Nausea, Loss of appetite. No: Fever, Vomiting, Diarrhea, Constipation (had normal BM last evening.), Dysuria, Hematuria, Near syncope / syncope Similar symptoms before: Diagnosis (has had diverticulitis in the past twice, but not exactly the same. no history of kidney stones.) PD PAST MEDICAL HISTORY - Past Medical History Cardiovascular: High cholesterol Respiratory: None Endocrine/Autoimmune: None GI: Diverticulitis : None HEENT: Chronic vision loss Psych: None Musculoskeletal: None Derm: None - Past Surgical History Past Surgical History: Yes /[employer]: Hysterectomy, Other - Present Medications Home Medications: Ambulatory Orders Medication Instructions Recorded Confirmed HYDROmorphone [Dilaudid] 2 mg PO Q4H PRN #20 tablet 07/04/22 Meloxicam [Mobic] 7.5 mg PO BID 10 Days #20 tablet 07/04/22 Ondansetron Odt [Zofran] 4 mg TL Q6H PRN #10 tablet 07/04/22 - Allergies Allergies/Adverse Reactions: Allergies Allergy/AdvReac Type Severity Reaction Status Date / Time ibuprofen Allergy nosebleed Verified 07/04/22 12:06 - Social History Does the pt smoke?: Yes Smoking Status: Current every day smoker Does the pt drink ETOH?: No Does the pt have substance abuse?: No - Immunizations Immunizations are current?: Yes - POLST Patient has POLST: No Results - Vitals Vitals: Vital Signs - 24 hr 07/04/22 07/04/22 12:03 14:03 Temperature 36.8 C Heart Rate 76 75 Respiratory 20 16 Rate Blood Pressure 138/76 H 144/62 H O2 Saturation 98 95 Oxygen O2 Source Room air - Labs Labs: Laboratory Tests 07/04/22 07/04/22 07/04/22 12:37 12:37 12:37 WBC 12.8 H RBC 4.22 Hgb 12.7 Hct 37.4 MCV 88.6 MCH 30.1 MCHC 34.0 RDW 12.6 Plt Count 410 MPV 9.3 Neut # (Auto) 10.0 H Lymph # (Auto) 1.9 [place] # (Auto) 0.7 Eos # (Auto) 0.1 Baso # (Auto) 0.1 Absolute Nucleated RBC 0.00 Nucleated RBC % 0.0 Sodium 138 Potassium 4.1 Chloride 107 Carbon Dioxide 23 Anion Gap 8.0 BUN 18 Creatinine 0.7 Estimated GFR (MDRD) 83 L Glucose 115 H Calcium 9.1 Total Bilirubin 0.7 AST 22 ALT 25 Alkaline Phosphatase 84 Total Protein 7.4 Albumin 4.3 Globulin 3.1 Albumin/Globulin Ratio 1.4 Lipase 48 Urine Color DARK YELLOW Urine Clarity CLEAR Urine pH 5.5 Ur Specific [place] >=1.030 H Urine Protein NEGATIVE Urine Glucose (UA) NEGATIVE Urine Ketones NEGATIVE Urine Occult Blood NEGATIVE Urine Nitrite NEGATIVE Urine Bilirubin NEGATIVE Urine Urobilinogen 0.2 (NORMAL) Ur Leukocyte Esterase NEGATIVE Ur Microscopic Review NOT INDICATED Urine Culture Comments NOT INDICATED - Rads (name of study) abd/pelvic kub cT Relevant Findings:: Prelim report reviewed (diverticula without diverticulitis. no acute process. No stones. ), EMP independent interpretation of test (I feel there is a 2 mm stone in the ureter line on left side about the lefel of the iliac. No notable hydronephrosis. No other acute process seen. ), See rad report PD Medical Decision Making - ED course Complexity details: reviewed results (her symptoms are most c/w kidney stone. CT showing normal per radiologist, but i believe there is a 2 mm stone in distal ureter. No other abnormal findings, so if it were muscular/nerve vs. kidney stone, would be similar treatment at this point. shared this concept with patient and is okay with meds), re-evaluated patient (improved but not gone pain with iv pain meds. given iV Toradol and Dilaudid. Repeat dose of IV Dilaudid 1mg given to improve pain further. She is then comfortable with the pain level. ), considered differential (pain left flank to left groin and some to anterior thigh. consider kidney stone, diverticulitis, muscle spasm with nerve impingement. Pacing and standing in room, uncomfortable in any position. ), d/w patient Reviewed Lab Results: UA without infection. WBC mildly elevated at 12.8. cT questionable discrepancy on findings: small ureteral stone or not. No infectious cause seen. Treatment with NSAIDs and pain meds are reasonable for either musculoskeletal or stone. Not skin sensitive per se, and no rash, but is early, so i cautioned her to be aware of rash outbreak 9shingles) and we would add other meds if this developed. Drug Therapy Requiring Monitoring for Toxicity: IV doses of toradol and DIlaudid given without untoward effect. Departure - Departure Disposition: 01 Home, Self Care Clinical Impression: Acute left flank pain Condition: Stable Record reviewed to determine appropriate education?: Yes Instructions: ED Flank Pain Uncertain Cause Follow-Up: Mayra Liz PA [Primary Care Provider] - Prescriptions: HYDROmorphone [Dilaudid] 2 mg PO Q4H PRN #20 tablet PRN Reason: Pain Meloxicam [Mobic] 7.5 mg PO BID 10 Days #20 tablet Ondansetron Odt [Zofran] 4 mg TL Q6H PRN #10 tablet PRN Reason: Nausea / Vomiting Comments: Your blood count and chemistry panel including electrolytes and kidney function are in the normal range. Your urine sample does not show any signs of infection or blood. Your CT scan was normal without any signs of diverticulitis nor kidney stones or other acute abnormalities according to the radiologist report. However I believe I am seeing a small kidney stone in the ureter on the left side and that could likely account for the type of pain that you are having. At this point we will presume either kidney stone pain or otherwise a muscular back pain perhaps with some "pinching" of the nerve causing the pain down into the groin and thigh area. Otherwise at distribution of pain is characteristic of a kidney stone in the ureter. I would suggest staying well-hydrated. Use the anti-inflammatory such as meloxicam (you list ibuprofen as an allergy). To that you can add ondansetron if needed for nausea and Tylenol every 4-6 hours if needed for pain. Also prescribed oral Dilaudid to use for pain that is worse in the short-term. You said you would had side effects to the codeine type pain medicines in the past. I sent these prescriptions to your preferred pharmacy. Recheck if not improved well over the next couple of days and return if worse or in the insufficiently relieved with the oral medicine. I am prescribing a short course of narcotic pain medication for you. These are potentially dangerous and addictive medications that should be used carefully. These medications may constipate you. Take an [id number] stool softener such as docusate twice daily with plenty of water while taking these medications. If you go 24 hours without a bowel movement, take [id number] MiraLAX, per package instructions. Do not drink or drive while taking these medications. If you received narcotic or sedating medications while in the emergency department do not drive for 24 hours. Store this medication in a safe, secure place and out of reach of children. It is a violation of federal law to give or sell this medication to another person or to use in a manner other than prescribed. The ED will not refill narcotic prescriptions, including prescriptions lost or stolen. You can dispose of unwanted medications at the [facility]'s office or at several pharmacies such as [facility]. Discharge Date/Time: 07/04/22 14:36
[2022-07-04] MEDS ORDERED: ONDANSETRON 4 MG/2 ML VIAL IVP STA (12:29)
[2022-07-04] MEDS ORDERED: fentaNYL 100 MCG/2 ML VIAL IVP STA (12:29)
[2022-07-04] MEDS ORDERED: KETOROLAC 15 MG/ML VIAL IVP STA (12:29)
[2022-07-04 12:42] LABS: BASOPHILS # (AUTO) 0.1 10^3/uL (0.0-0.1); BASOPHILS % (AUTO) 0.5 %; EOSINOPHILS # (AUTO) 0.1 10^3/uL (0.0-0.7); EOSINOPHILS % (AUTO) 0.7 %; HCT - HEMATOCRIT 37.4 % (37.0-47.0); HGB - HEMOGLOBIN 12.7 g/dL (12.0-16.0); LYMPHOCYTES # (AUTO) 1.9 10^3/uL (1.5-3.5); LYMPHOCYTES % (AUTO) 14.7 %; MEAN CORPUSCULAR HEMOGLOBIN 30.1 pg (27.0-31.0); MEAN CORPUSCULAR VOLUME 88.6 fL (81.0-99.0); MEAN PLATELET VOLUME 9.3 fL (7.9-10.8); MONOCYTES # (AUTO) 0.7 10^3/uL (0.0-1.0); MONOCYTES % (AUTO) 5.4 %; NEUTROPHILS % (AUTO) 78.5 %; PLT - PLATELET COUNT 410 10^3/uL (130-450); RED BLOOD COUNT 4.22 10^6/uL (4.20-5.40); RED CELL DISTRIBUTION WIDTH 12.6 % (12.0-15.0); WHITE BLOOD COUNT 12.8 x10^3/uL (4.8-10.8)
[2022-07-04 12:45] LABS: BILIRUBIN,URINE NEGATIVE (NEGATIVE); GLUCOSE, URINE (UA) NEGATIVE (NEGATIVE); KETONES,URINE (UA) NEGATIVE (NEGATIVE); LEUKOCYTE ESTERASE, URINE NEGATIVE (NEGATIVE); NITRITE,URINE NEGATIVE (NEGATIVE); OCCULT BLOOD,URINE NEGATIVE (NEGATIVE); PH,URINE 5.5 PH (5.0-7.5); PROTEIN,URINE NEGATIVE (NEGATIVE); UROBILINOGEN,URINE 0.2 (NORMAL) E.U./dL (NORMAL)
[2022-07-04 12:48] LABS: CLARITY,URINE CLEAR (CLEAR)
[2022-07-04 12:58] LABS: ALBUMIN 4.3 g/dL (3.2-5.5); ALBUMIN/GLOBULIN RATIO 1.4 (1.0-2.2); BILIRUBIN,TOTAL 0.7 mg/dL (0.2-1.0); CALCIUM 9.1 mg/dL (8.5-10.3); CREATININE 0.7 mg/dL (0.4-1.0); POTASSIUM 4.1 mmol/L (3.5-5.0); TOTAL PROTEIN 7.4 g/dL (6.7-8.2)
--- NOTE | 2022-07-04 12:58 | CT Report ---
PROCEDURE: ABDOMEN/PELVIS WO INDICATIONS: left flank to groin pain since yesterday TECHNIQUE: Noncontrast 5 mm thick sections acquired from the diaphragms to the symphysis. 5 mm coronal and sagi ttal reformats were then performed. For radiation dose reduction, the following was used: automated exposure control, adjustment of mA and/or kV according to patient size. COMPARISON: 08/18/2019 FINDINGS: Image quality: Excellent. Lung bases and heart: Unremarkable. Liver: Unremarkable. Gallbladder and biliary tree: Within normal limits. Spleen: Unremarkable. Pancreas: Unremarkable. Adrenals: Unremarkable. Kidneys and ureters: No stones or hydronephrosis can be seen involving either kidney. A 3.5 cm simple cyst is seen along the superior medial aspect of the left kidney. An additional. Cyst can be seen involving the lateral aspect of the left kidney, 1.6 cm. Bowel and peritoneum: No bowel distension. No pathologic free fluid. Minimal distal colonic diverticu losis can be seen, without janelle findings of active diverticulitis. Appendix Lymph nodes: No central or retroperitoneal adenopathy. Vessels: Unremarkable. PELVIS Reproductive organs: Unremarkable. Bladder: Unremarkable. Lymph nodes: Unremarkable. Bones: No aggressive osseous abnormality. Focal lower lumbar spine degenerative changes are seen. Other: None. IMPRESSION: Negative for kidney stones or obstructive uropathy. Additional findings: Simple appearing left renal cysts Focal lower lumbar spine degenerative change Minimal distal colonic diverticulosis, without diverticulitis. Normal appendix Reviewed by: Dariel Real MD on 07/04/2022 11:57 AM [facility] Approved by: Dariel Real MD on 07/04/2022 11:57 AM [facility] Station ID: [id number]
[2022-07-04] MEDS ORDERED: ACETAMINOPHEN 325 MG TABLET PO STA (13:47)
[2022-07-04] MEDS ORDERED: HYDROmorphone 1 MG/ML CARPUJECT IVP STA (13:47)
[2022-07-04] MEDS ORDERED: methocarbamoL 500 MG TABLET PO STA (13:48)
[2022-07-04 14:03] VITALS: BP 144/62
== END 2022-07-04 14:36 | disposition home or self-care (01) ==
LOC: ED 11:57
DX: R10.12 Left upper quadrant pain (principal); E78.00 Pure hypercholesterolemia, unspecified; F17.200 Nicotine dependence, unspecified, uncomplicated
CPT/HCPCS: 36415; 74176; 80053; 81003; 83690; 85025; 96374; 96375; 99284; 99285; A9270; J1170; 81001; 87086

== ENCOUNTER 2023-01-21 08:10 | Outpatient (CLI) | payer OTHER, MEDICARE ==
--- NOTE | 2023-01-22 11:22 | Mammography Report ---
BILATERAL DIGITAL SCREENING MAMMOGRAM 3D/2D: 01/21/2023 CLINICAL: Routine screening. Comparison is made to exams dated: 06/17/2021 mammogram, 06/16/2019 ultrasound, 06/16/2019 mammogram, mammogram, 09/22/2017 ultrasound, and 09/22/2017 mammogram - [facility]. Both breasts are heterogeneously dense, which may obscure small masses (category c / 51-75% glandular tissue). No significant masses, calcifications, or other findings are seen in either breast. There has been no significant interval change. IMPRESSION: NEGATIVE There is no mammographic evidence of malignancy. A 1 year screening mammogram is recommended. Based on the Tyrer Cuzick model (a risk assessment model) the patients lifetime risk is 6.9% and her 10 year risk is 3.8%. According to the ACR, ACS, and NCCN guidelines, an annual breast MRI exam kwame g with mammogram is recommended if the patients lifetime risk is 20% or greater. This exam was interpreted at Station ID: [id number]. NOTE: For mammograms, a report in lay terms will be sent to the patient. Approximately 15% of breast malignancies will not be visualized mammographically. In the management of a palpable breast mass, a negative mammogram must not discourage biopsy of a clinically suspicious lesion. Electronically Signed By: Bi ibarra/dragan:01/21/2023 16:03:58 letter sent: No_Letter ACR BI-RADS Category 1: Negative 3341F PARENCHYMAL PATTERN: (D) - The breast(s) demonstrate(s) heterogeneously dense fibroglandular conchita flower. BI-RADS CATEGORY: (1) - 1 Mammogram 20240122 1 year screening LATERALITY: (B)
== END 2023-01-21 08:11 | disposition home or self-care (01) ==
LOC: DI.N 08:10
DX: Z12.31 Encounter for screening mammogram for malignant neoplasm of breast (principal); R92.333 Mammographic heterogeneous density, bilateral breasts

== ENCOUNTER 2023-06-11 08:06 | Outpatient (CLI) | payer MEDICARE ==
[2023-06-11 12:23] LABS: ESTIMATED AVERAGE GLUCOSE 114 mg/dL (70-100); HEMOGLOBIN A1c% 5.6 % (4.27-6.07)
[2023-06-11 12:34] LABS: BASOPHILS # (AUTO) 0.1 10^3/uL (0.0-0.1); BASOPHILS % (AUTO) 0.5 %; EOSINOPHILS # (AUTO) 0.2 10^3/uL (0.0-0.7); EOSINOPHILS % (AUTO) 1.9 %; HCT - HEMATOCRIT 38.6 % (37.0-47.0); HGB - HEMOGLOBIN 12.5 g/dL (12.0-16.0); LYMPHOCYTES # (AUTO) 1.8 10^3/uL (1.5-3.5); LYMPHOCYTES % (AUTO) 18.7 %; MEAN CORPUSCULAR HEMOGLOBIN 29.5 pg (27.0-31.0); MEAN CORPUSCULAR HGB CONC 32.4 g/dL (32.0-36.0); MEAN PLATELET VOLUME 9.7 fL (7.9-10.8); MONOCYTES # (AUTO) 0.6 10^3/uL (0.0-1.0); MONOCYTES % (AUTO) 6.1 %; NEUTROPHILS # (AUTO) 6.8 10^3/uL (1.5-6.6); NEUTROPHILS % (AUTO) 72.5 %; PLT - PLATELET COUNT 392 10^3/uL (130-450); RED BLOOD COUNT 4.24 10^6/uL (4.20-5.40); RED CELL DISTRIBUTION WIDTH 12.8 % (12.0-15.0); WHITE BLOOD COUNT 9.4 x10^3/uL (4.8-10.8)
[2023-06-11 12:45] LABS: ALBUMIN 4.3 g/dL (3.2-5.5); ALBUMIN/GLOBULIN RATIO 1.6 (1.0-2.2); ALKALINE PHOSPHATASE 91 IU/L (42-121); ALT ALANINE AMINOTRANSFERASE 20 IU/L (10-60); AST ASPARTATE AMINOTRANSFERASE 17 IU/L (10-42); BILIRUBIN,TOTAL 0.4 mg/dL (0.2-1.0); BUN - BLOOD UREA NITROGEN 13 mg/dL (6-20); CALCIUM 9.7 mg/dL (8.5-10.3); CARBON DIOXIDE - CO2 28 mmol/L (21-32); CHLORIDE 107 mmol/L (101-111); CHOL/HDL RATIO 3.9 (<4.4); CHOLESTEROL 190 mg/dL; CREATININE 0.7 mg/dL (0.6-1.3); GFR - MDRD 83 (>89); GLUCOSE 105 mg/dL (74-104); HDL CHOLESTEROL 49 mg/dL; LDL CHOLESTEROL,CALCULATED 125 mg/dL; LDL/HDL RATIO 2.6 (<4.4); POTASSIUM 4.6 mmol/L (3.5-4.5); SODIUM 139 mmol/L (135-145); TRIGLYCERIDES 80 mg/dL (48-352); VLDL CHOLESTEROL 16 mg/dL
[2023-06-11 13:08] LABS: THYROID STIMULATING HORMONE 1.35 uIU/mL (0.34-5.60)
== END 2023-06-11 08:07 | disposition home or self-care (01) ==
LOC: LAB.N 08:06
PROVIDERS: ATTEND Physician Assistant
DX: E78.5 Hyperlipidemia, unspecified (principal); R73.01 Impaired fasting glucose; I10 Essential (primary) hypertension
CPT/HCPCS: 36415; 80053; 80061; 83036; 83721; 84443; 85025

== ENCOUNTER 2023-08-03 17:19 | Outpatient (CLI) | payer MEDICARE ==
[2023-08-03 21:18] LABS: CALCIUM 9.6 mg/dL (8.5-10.3); CREATININE 0.8 mg/dL (0.6-1.3); POTASSIUM 4.1 mmol/L (3.5-4.5)
== END 2023-08-03 17:20 | disposition home or self-care (01) ==
LOC: LAB.N 17:19
PROVIDERS: ATTEND Physician Assistant
DX: I10 Essential (primary) hypertension (principal)
CPT/HCPCS: 36415; 80048

== ENCOUNTER 2023-12-03 12:41 | Outpatient (CLI) | payer MEDICARE ==
[2023-12-03 18:36] LABS: CALCIUM 9.9 mg/dL (8.5-10.3); CREATININE 0.8 mg/dL (0.6-1.3); POTASSIUM 3.6 mmol/L (3.5-4.5)
== END 2023-12-03 12:42 | disposition home or self-care (01) ==
LOC: LAB.N 12:41
PROVIDERS: ATTEND Physician Assistant
DX: I10 Essential (primary) hypertension (principal)
CPT/HCPCS: 36415; 80048